=== PATIENT | female | born 1960 ===

== ENCOUNTER 2017-11-23 00:25 | Outpatient (CLI) | payer BC, OTHER | END 2017-11-23 23:59 | disposition home or self-care (01) | LOC: DIABETIC 00:25 | PROVIDERS: ATTEND Surgery | DX: E66.01 Morbid (severe) obesity due to excess calories (principal); I10 Essential (primary) hypertension | CPT/HCPCS: 97802 ==

== ENCOUNTER 2017-12-14 02:56 | Outpatient (CLI) | payer BC, OTHER | END 2017-12-14 23:59 | disposition home or self-care (01) | LOC: DIABETIC 02:56 | PROVIDERS: ATTEND Surgery | DX: E66.01 Morbid (severe) obesity due to excess calories (principal); I10 Essential (primary) hypertension | CPT/HCPCS: 97802 ==

== ENCOUNTER 2018-08-29 01:03 | Outpatient (CLI) | payer BC, OTHER | END 2018-08-29 23:59 | disposition home or self-care (01) | LOC: DIABETIC 01:03 | PROVIDERS: ATTEND Nurse Practitioner Family | DX: E66.01 Morbid (severe) obesity due to excess calories (principal) | CPT/HCPCS: 97802 ==

== ENCOUNTER 2019-11-29 00:55 | Outpatient (CLI) | payer BC, OTHER | END 2019-11-29 23:59 | disposition home or self-care (01) | LOC: DIABETIC 00:55 | PROVIDERS: ATTEND Surgery | DX: E66.01 Morbid (severe) obesity due to excess calories (principal) | CPT/HCPCS: 97803 ==